=== PATIENT | female | born 1985 | race Caucasian/White ===

== ENCOUNTER 2023-07-08 11:03 | Emergency (ER) | payer OTHER, SELFPAY ==
[2023-07-08 11:21] VITALS: BP 115/69
[2023-07-08 11:43] LABS: % Basophils 0.3 % (0-2); % Eosinophils 1.5 % (0-6); % Immature Granulocytes 0.7 % (0-0.5); % Lymphocytes 18.3 % (20.5-51.1); % Monocytes 11.9 % (1.7-9.3); % Neutrophils 67.3 % (42.2-75.2); Absolute Eosinophils 0.1 10^3/uL (0-0.7); Absolute Immature Granulocytes 0.1 10^3/uL (0-0.05); Absolute Lymphocytes 1.6 10^3/uL (1.2-3.4); Absolute Monocytes 1.1 10^3/uL (0.1-0.6); Absolute Neutrophils 5.9 10^3/uL (1.4-6.5); Hematocrit 34.8 % (37.0-47.0); Hemoglobin 11.4 g/dL (12.0-16.0); Mean Corp Hgb Conc. 32.8 g/dL (33.0-37.0); Mean Corpuscular Hgb 27.7 pg (27.0-31.0); Mean Corpuscular Volume 84.7 fL (81.0-99.0); Mean Platelet Volume 10.5 fL (7.4-10.4); Nucleated Red Blood Cells % 0 %; Platelet Count 237 10^3/uL (130-400); Red Blood Cell Count 4.11 10^6/uL (4.20-5.40); Red Cell Dist. Width 17.2 % (11.5-14.5); White Blood Cell Count 8.8 10^3/uL (4.8-10.8)
[2023-07-08 11:58] LABS: ALT (SGPT) 12 U/L (0-35); AST (SGOT) 22 U/L (14-36); Albumin 3.7 g/dl (3.5-5.0); Alkaline Phosphatase 132 U/L (38-126); Blood Urea Nitrogen 5 mg/dl (7-17); Calcium 8.9 mg/dl (8.4-10.2); Carbon Dioxide 24 mmol/L (22-30); Chloride 105 mmol/L (98-107); Glucose 84 mg/dl (70-99); Potassium 3.9 mmol/L (3.5-5.1); Sodium 134 mmol/L (135-145); Total Bilirubin 0.3 mg/dl (0.2-1.3); Total Protein 6.6 g/dl (6.3-8.2); eGFR > 60.00
--- NOTE | 2023-07-08 12:03 | ED.GENMED ---
History of Present Illness
General
Chief Complaint: Dizziness
Source: patient
Time Seen by Provider: 07/08/23 11:36
Travel History
Have you had any contact with someone who has COVID-19?: No
Do you have any symptoms of coronavirus? Fever > 100 degrees, chills, cough, shortness of breath, sore throat, loss of taste or smell, muscle aches, or headache?: No
History of Present Illness
History of Present Illness:
38-year-old female, currently 34 weeks and 6 days , presenting to the emergency department at request of her [employer] for evaluation after she felt lightheaded and near syncopal at work earlier today. Patient ate and drank following but due
to persistent symptoms contacted her [employer]'s office who referred the patient to the emergency department to be evaluated for possible preeclampsia. This is patient's third and did not have any complications with her previous 2
pregnancies. Upon arrival to the emergency department patient reports her symptoms are fully resolved.
Past History
Past History
ED Past Medical History: Other ( 2 para)
ED Past Surgical History: None
Social History
Tobacco: Non-smoker
Alcohol: None
Drug: None
Personal:
Living: with family
Employment: Employed
Family History
Family History: Other (Father with stroke and diabetes, mother with breast cancer)
Review of Systems
Review of Systems
All Other Systems: ROS reviewed and negative except as documented in HPI and ROS
Phy Exam
Physical Exam
Physical Exam:
GENERAL: Alert , in no apparent distress
EYE: conjunctiva clear
Head: Normocephalic atraumatic
NECK: Supple,
ENT: mmm.
Heart: Regular rate and rhythm
LUNGS: no acute respiratory distress
Abdomen: Gravid uterus
NEUROLOGICAL: Alert and oriented
SKIN: Warm and dry, skin intact.
MUSCULOSKELETAL: well perfused.
PSYCH: Normal and appropriate interaction.
Course
Orders/Labs/Results
Orders:
Orders
07/08/23 11:33
Complete Blood Count/With Diff Urgent
Comprehensive Metabolic Panel Urgent
Urinalysis Reflex To Culture Urgent
Date Specimen was Collected: 07/08/23
Time Specimen was Collected: 11:29
Urine Microscopic Reflex Cult Urgent
Urine Culture Urgent
KEN Source: U
Specimen Description:
Date Specimen was Collected: 07/08/23
Time Specimen was Collected: 11:29
07/08/23 11:36
Orthostatic VS- Treatment ONCE
07/08/23 12:15
Heart Tones ONCE
Abnormal Lab Results
07/08/23
11:33
RBC 4.11 L 10^6/uL
(4.20-5.40)
Hgb 11.4 L g/dL
(12.0-16.0)
Hct 34.8 L %
(37.0-47.0)
MCHC 32.8 L g/dL
(33.0-37.0)
RDW 17.2 H %
(11.5-14.5)
MPV 10.5 H fL
(7.4-10.4)
Abs Immat Gran (auto) 0.1 H 10^3/uL
(0-0.05)
Absolute Monos (auto) 1.1 H 10^3/uL
(0.1-0.6)
Immature Gran % 0.7 H %
(0-0.5)
Lymphocytes % 18.3 L %
(20.5-51.1)
Monocytes % 11.9 H %
(1.7-9.3)
Sodium 134 L mmol/L
(135-145)
BUN 5 L mg/dl
(7-17)
Creatinine 0.5 L mg/dL
(0.6-1.0)
Alkaline Phosphatase 132 H U/L
(38-126)
Leukocyte Esterase Rfl 2+ A
(Negative)
Urine WBC (Reflex) 16-20 A /HPF
(0-5)
Urine Bacteria (Reflex) Many A
(Negative)
07/08/23 11:33
07/08/23 11:33
Vital Signs
Initial and Last Documented VS:
Initial Vital Signs
Temp Pulse Resp BP Pulse Ox
98.2 F 96 16 115/69 98
07/08/23 11:21 07/08/23 11:21 07/08/23 11:21 07/08/23 11:21 07/08/23 11:21
Last Documented Vital Signs
Temp Pulse Resp BP Pulse Ox
98.2 F 93 18 106/70 98
07/08/23 11:21 07/08/23 12:58 07/08/23 12:58 07/08/23 12:58 07/08/23 12:58
MDM/Problems Addressed
Differential Diagnosis Includes:
Preeclampsia, orthostasis, no concern for labor
MDM/Problems Addressed:
38-year-old female present Emergency Department for evaluation of transient lightheadedness earlier today sent to the emergency department to rule out preeclampsia. Blood pressure is completely normal here. Lab work and urine had been already
ordered. Will check orthostatics as well as heart tones. Anticipate discharge
*Pulse Oximetry
Patient hypoxic: no
*Critical Care Note
Total Time (30-74mins, 75-104mins- exclusive of procedures): Not Applicable
Patient Management
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
Escalation/DeEscalation of care consider admission/obs:
Labs and urine are unremarkable. Patient remains asymptomatic. I did notify the [employer] team who is in agreement patient to be safely discharged home and continue outpatient follow-up with them. Patient aware of return precautions. Advised to
increase p.o. intake to liquids.
ED Attending Note
-
Portions of this chart may have been created with voice recognition software.� Occasional wrong word or��sound alike� substitutions may have occurred due to the inherent limitations of voice recognition software.
Discharge Plan
Departure
Patient Disposition: Home (Routine Discharge)
Date of Disposition: 07/08/23
Time of Disposition: 12:42
Patient with high blood pressure during this ER visit?: No
Discharge Problem:
Episodic lightheadedness
Instructions: Dizziness, Nonvertigo, (DC)
Prescriptions:
No Action
prenat.vits,emely,jey-esol-yckca [ Vitamin] 1 EACH tablet
1 tab PO DAILY
acetaminophen 325 MG tablet
650 mg PO Q4HPRN PRN (Reason: mild pain) 0RF
sennosides-docusate sodium 1 TABLET tablet
1 tab PO DAILYPRN PRN (Reason: constipation) Qty: 30 0RF
ferrous sulfate [FeroSul] 325 MG tablet
325 mg PO BID Qty: 60 0RF
ibuprofen 600 MG tablet
600 mg PO Q6HPRN PRN (Reason: moderate pain/cramps) Qty: 60 0RF
Referrals:
Fran Garay DO [Family Provider] -
Interventions
Interventions:
*Risk Screen - Suicide Last Done: 07/08/23 12:49
*General Assessment Last Done: 07/08/23 12:49
*Neglect/Abuse Screening Last Done: 07/08/23 12:49
ED- Fall Risk Assessment Last Done: 07/08/23 12:49
*ED COVID-19 Vaccine History Last Done: 07/08/23 11:21
*Nursing Disposition Last Done: 07/08/23 12:58
ED- Neurological Assessment Last Done: 07/08/23 12:49
ED- Cardiac Assessment Last Done: 07/08/23 12:49
ED Swallowing Screen Last Done: 07/08/23 12:52
Discharge Date and Time
Discharge Date/Time: 07/08/23 12:58
[2023-07-08 12:07] VITALS: BP 108/62; BP 116/69; BP 79/66; PULSE 107; PULSE 95; PULSE 98
[2023-07-08 12:12] LABS: Urine Albumin Negative (Neg - Trace); Urine Bilirubin Negative (Negative); Urine Character Clear (Clear); Urine Color Yellow; Urine Glucose Negative (Negative); Urine Ketone Negative (Negative); Urine Leukocyte 2+ (Negative); Urine Nitrite Negative (Negative); Urine Occult Blood Negative (Negative); Urine Specific Gravity 1.005 (<1.030); Urine Urobilinogen Negative (Neg - 1+)
[2023-07-08 12:33] LABS: Urine Mucus Few; Urine Squamous Cell >30 /LPF (Few)
[2023-07-08 12:34] LABS: Urine Bacteria Many (Negative); Urine Red Blood Cell 0-2 /HPF (0-2); Urine White Cell 16-20 /HPF (0-5)
[2023-07-08 12:49] VITALS: BMI 27.0
[2023-07-08 12:50] VITALS: BP 106/70
--- NOTE | 2023-07-08 12:57 | EDRN ---
Reviewed discharge instructions with patient. Verbalized understanding. Ambulated with steady gait to the lobby.
[2023-07-08 12:58] VITALS: BP 106/70
== END 2023-07-08 12:58 | disposition home or self-care (01) ==
LOC: EMR 11:03
PROVIDERS: EMERGENCY PHYSICIAN Student in an Organized Health Care Education/Training Program; FAMILY PHYSICIAN Family Medicine
DX: O26.893 Other specified pregnancy related conditions, third trimester (principal); R42 Dizziness and giddiness; Z3A.34 34 weeks gestation of pregnancy
CPT/HCPCS: 99283; 80053; 81003; 81015; 85025; 87086

== ENCOUNTER 2023-08-13 16:23 | Inpatient (IN) | payer OTHER, SELFPAY ==
[2023-08-13 16:44] VITALS: BP 116/68; BMI 27.5
[2023-08-13 18:01] LABS: % Basophils 0.1 % (0-2); % Eosinophils 1.3 % (0-6); % Immature Granulocytes 0.5 % (0-0.5); % Lymphocytes 17.9 % (20.5-51.1); % Monocytes 9.8 % (1.7-9.3); % Neutrophils 70.4 % (42.2-75.2); Absolute Eosinophils 0.1 10^3/uL (0-0.7); Absolute Lymphocytes 1.4 10^3/uL (1.2-3.4); Absolute Monocytes 0.8 10^3/uL (0.1-0.6); Absolute Neutrophils 5.5 10^3/uL (1.4-6.5); Hematocrit 34.9 % (37.0-47.0); Hemoglobin 11.8 g/dL (12.0-16.0); Mean Corp Hgb Conc. 33.8 g/dL (33.0-37.0); Mean Corpuscular Hgb 28.3 pg (27.0-31.0); Mean Corpuscular Volume 83.7 fL (81.0-99.0); Mean Platelet Volume 10.9 fL (7.4-10.4); Nucleated Red Blood Cells % 0 %; Platelet Count 207 10^3/uL (130-400); Red Blood Cell Count 4.17 10^6/uL (4.20-5.40); Red Cell Dist. Width 15.9 % (11.5-14.5); White Blood Cell Count 7.8 10^3/uL (4.8-10.8)
[2023-08-13] MEDS: PITOCIN 30 UNITS/NSS 500 ML IV (18:32)
[2023-08-13] MEDS: SUBLIMAZE 100 MCG EPIDURAL (21:44)
[2023-08-13] MEDS: FENTANYL/BUPIVACAINE 100 EPIDURAL (22:01)
[2023-08-13] MEDS: LR 1000 IV (22:29)
[2023-08-14] MEDS: MOTRIN 600 MG PO ×3 (04:37→19:48)
[2023-08-14] MEDS: FEOSOL 325 MG PO (07:46)
[2023-08-14] MEDS: SENOKOT-S 1 TABLET PO (07:46)
[2023-08-14] MEDS: PRENATAL PLUS 1 TABLET PO (07:46)
[2023-08-14] MEDS: TYLENOL 650 MG PO (15:32)
[2023-08-14] MEDS: FEOSOL PO (19:48)
[2023-08-15] MEDS: MOTRIN 600 MG PO (02:27)
[2023-08-15 05:56] LABS: Hematocrit 35.2 % (37.0-47.0); Hemoglobin 11.7 g/dL (12.0-16.0)
[2023-08-15] MEDS: TYLENOL 650 MG PO (07:40)
[2023-08-15] MEDS: FEOSOL 325 MG PO (07:40)
[2023-08-15] MEDS: SENOKOT-S 1 TABLET PO (07:40)
[2023-08-15] MEDS: PRENATAL PLUS 1 TABLET PO (07:40)
[2023-08-16 14:53] LABS: Syphilis/T. pallidum Ab Reflex Negative (Negative)
== END 2023-08-15 12:45 | disposition home or self-care (01) | DRG 807 ==
LOC: LDRP 16:23
PROVIDERS: ADMITTING PHYSICIAN Obstetrics & Gynecology; FAMILY PHYSICIAN Family Medicine
PROC: 3E033VJ Introduction of Other Hormone into Peripheral Vein, Percutaneous Approach (ICD-10-PCS; 2023-08-13)
PROC: 10907ZC Drainage of Amniotic Fluid, Therapeutic from Products of Conception, Via Natural or Artificial Opening (ICD-10-PCS; 2023-08-13)
PROC: 10E0XZZ Delivery of Products of Conception, External Approach (ICD-10-PCS; 2023-08-14)
DX: O48.0 Post-term pregnancy (principal); Z37.0 Single live birth; Z3A.40 40 weeks gestation of pregnancy; O76 Abnormality in fetal heart rate and rhythm complicating labor and delivery
CPT/HCPCS: 36415; 85014; 85018; 85025; 86780; 86850; 86900; 86901

== ENCOUNTER → 2024-12-10 08:25 | Outpatient (REF) | payer OTHER, SELFPAY | LOC: WDC 08:25 | PROVIDERS: ATTENDING PHYSICIAN Obstetrics & Gynecology; FAMILY PHYSICIAN Internal Medicine | DX: R92.8 Other abnormal and inconclusive findings on diagnostic imaging of breast (principal) | CPT/HCPCS: 77065 ==

== ENCOUNTER → 2024-12-15 06:24 | Outpatient (REF) | payer OTHER, SELFPAY ==
--- NOTE | 2024-12-15 08:54 | OID.BR.INTR ---
[facility] Breast Navigator - Initial
- -
Date of Contact: 12/15/24
Met with patient. Patient given written information on navigator service available at [facility]. Will follow up as needed per protocol.
== END ==
LOC: WDC 06:24
PROVIDERS: ATTENDING PHYSICIAN Obstetrics & Gynecology; FAMILY PHYSICIAN Internal Medicine
DX: R92.1 Mammographic calcification found on diagnostic imaging of breast (principal)
CPT/HCPCS: 19081; 76098; 88305; A4648